=== PATIENT | male | born 1995 | race Caucasian/White ===

== ENCOUNTER 2023-11-06 18:10 | Inpatient (IN) | payer OTHER, SELFPAY ==
[2023-11-06] VITALS (13 sets, daily range): BP systolic 94–125; BP diastolic 55–79; BMI 21.7; BMI 21.3
[2023-11-06] MEDS: NSS 1000 IV ×2 (12:57→15:34)
[2023-11-06 13:04] LABS: Hematocrit 42.7 % (39.0-52.0); Hemoglobin 13.7 g/dL (13.0-18.0); Mean Corp Hgb Conc. 32.1 g/dL (33.0-37.0); Mean Corpuscular Hgb 28.4 pg (27.0-31.0); Mean Corpuscular Volume 88.4 fL (80.0-94.0); Mean Platelet Volume 9.6 fL (7.4-10.4); Platelet Count 419 10^3/uL (130-400); Red Blood Cell Count 4.83 10^6/uL (4.70-6.10); Red Cell Dist. Width 13.8 % (11.5-14.5); White Blood Cell Count 38.5 10^3/uL (4.8-10.8)
--- NOTE | 2023-11-06 13:14 | ED.GENMED ---
History of Present Illness
General
Chief Complaint: Overdose Unintentional
Time Seen by Provider: 11/06/23 12:52
History of Present Illness
History of Present Illness:
28-year-old male history of drug abuse, right hip infection presenting status post heroin overdose. Patient admits to using 1 bag of heroin today. Per EMS, patient was found unresponsive in the bathroom by his girlfriend, police arrived and
administered 4 mg of Narcan intranasally. Per EMS, respirations increased from 4 to 20. Patient reports right hip pain that started today. Patient states that he had a right hip infection years ago. Patient denies any recent fever or chills.
Patient declines rehab at this time. Patient states that he overdosed on heroin 1 time before and had decreased hearing after that episode. Patient states that hearing returned thereafter.
Phy Exam
Physical Exam
Physical Exam:
General: Alert, no acute distress, hard of hearing
Head: NCAT
Eyes: clear conjunctiva, PERRLA
Neck: supple
Cardiac: regular rhythm, tachycardic no murmur
Lungs: clear to auscultation bilaterally. No wheezes, rales, or rhonchi. Speaking full unlabored sentences. No respiratory distress.
Abdomen: soft, nondistended nontender. No rebound or guarding.
MSK: no lower extremity edema bilaterally. No deformity. Right hip tenderness to palpation. Decreased range of motion right hip secondary to pain. No overlying erythema or ecchymosis or increased warmth. 2+ DP pulses bilaterally. 5 out of 5
strength bilateral lower extremities
Skin: warm, dry
Neuro: Alert and oriented x3. no focal deficits
Course
Orders/Labs/Results
Orders:
Orders
11/06/23 12:51
Electrocardiogram (*1) Urgent
Reason for Study: Chest Pain
Cardiac Monitoring- Treatment ONCE
IV Insert/Care/Rem.- Treatment PRN
11/06/23 12:52
EKG- Treatment ONCE
11/06/23 12:54
Acetaminophen Urgent
Alcohol Urgent
Complete Blood Count/With Diff Urgent
Comprehensive Metabolic Panel Urgent
Fentanyl, Urine Urgent
Manual Differential Urgent
Salicylate Urgent
Urinalysis Reflex To Culture Urgent
Date Specimen was Collected: 11/06/23
Time Specimen was Collected: 12:52
Urine Drug Abuse Screen Urgent
Date Specimen was Collected: 11/06/23
Time Specimen was Collected: 12:52
11/06/23 12:57
0.9% Sodium Chloride 500 ml [Nss] 1,000 ml IV BOLUS
0.9% Sodium Chloride 500 ml [Nss] 500 ml IV BOLUS
11/06/23 13:13
Hip, Right 2-3 Views [CR Hip - RT w/wo Pel 2-3 Vw*] Urgent
Comment:
Reason For Exam: pain
Include a pelvis x-ray?: Yes
11/06/23 14:01
Albuterol Sulfate [Ventolin Nebules] 10 mg INH R NOW STA
Calcium Gluconate 1,000 mg IV NOW STA
Dextrose 50%-Water [Dextrose 50% Syringe] 12.5 grams IV [id number] PRN
Dextrose 50%-Water [Dextrose 50% Syringe] 25 grams IV NOW STA
Insulin Human Regular [Novolin R] 5 units IV NOW STA
11/06/23 14:02
Bedside Glucose- Treatment DIRECTED
Bedside Glucose- Treatment ONCE
11/06/23 14:15
0.9% Sodium Chloride 1000 ml [Nss] 1,000 ml IV 80 mls/hr
11/06/23 14:42
Lactic Acid Urgent
Blood Culture Urgent
VIDA Source: Blood/Venous
Specimen Description:
11/06/23 16:56
Cefepime HCl [Maxipime] 1,000 mg IV NOW STA
11/06/23 17:02
Sterile Water [Sterile Water For Injection] 10 ml .R[address]TE .[facility]
11/06/23 17:08
Vancomycin [Vancocin] 2,000 mg 0.9% Sodium Chloride 500 ml [Nss] 500 ml IV NOW
11/06/23 17:14
Potassium Urgent
Comment: draw 2 hours after regular insulin IV administration
Blood Culture Urgent
VIDA Source: Blood/Venous
Specimen Description:
11/06/23 17:39
Admit/Transfer Patient As Directed
Co-Sign Provider:
Level of Care: Inpatient admission
Assign to:: IMU- Intermediate Care
Physician / Group: sherman
Diagnosis: heroin overdose
Reason for Hospitalization: heroin overdose
Expected length of stay greater than two midnights?: Yes
ELOS- Estimated Length of Stay in days: 2
I certify the patient meets the requirements for IP care: Yes
PRN Pain Medication Management As Directed
May give lesser potent ordered pain med per pt: Yes
preference::
Protocol:: Medication orders for pain may be administered in a
manner that supports deferring to patient preference
when the pt is:
- Requesting an ordered lesser potent pain medication.
Least to most potent pain medications are defined
as: acetaminophen < NSAID < tramadol < opioids
(morphine, oxycodone, hydromorphone).
- Requesting a lesser dose of the same medication IF
ORDERED.
- Requesting a less intrusive route of administration
if both routes are prescribed by the provider (PO <
IV).
11/06/23 17:40
Code Status As Directed
Resuscitation Status: Full Code
Abnormal Lab Results
11/06/23 11/06/23 11/06/23
12:54 14:42 17:13
WBC 38.5 H 10^3/uL
(4.8-10.8)
MCHC 32.1 L g/dL
(33.0-37.0)
Plt Count 419 H 10^3/uL
(130-400)
Abs Neuts (Manual) 32.7 H 10^3/uL
(1.4-6.5)
Band Neutrophils 10 H %
(0-3)
Lymphocytes (Manual) 12 L %
(20-51)
Potassium 6.0 H mmol/L
(3.5-5.1)
Chloride 96 L mmol/L
(98-107)
Carbon Dioxide 20 L mmol/L
(22-30)
Glucose 242 H mg/dl
(70-99)
Lactic Acid 3.4 H mmol/L
(0.7-2.0)
AST 149 H U/L
(17-59)
ALT 89 H U/L
(0-50)
Albumin 5.3 H g/dl
(3.5-5.0)
Urine Ketones Trace A
(Negative)
Urine Glucose 2+ A
(Negative)
Salicylates < 1.0 L mg/dl
(2.0-20.0)
Urine Fentanyl Screen Positive H
(Negative)
Acetaminophen < 10 L ug/ml
(10-30)
U Benzodiazepines Scrn Positive H
(Negative)
Urine Cocaine Screen Positive H
(Negative)
POC Glucose 116 H mg/dl
(70-99)
11/06/23 12:54
11/06/23 17:14
Vital Signs
Initial and Last Documented VS:
Initial Vital Signs
Pulse Resp BP Pulse Ox
106 14 124/77 93
11/06/23 13:00 11/06/23 13:00 11/06/23 13:00 11/06/23 13:00
Last Documented Vital Signs
Temp Pulse Resp BP Pulse Ox
99.7 F 99 15 94/60 95
11/06/23 17:49 11/06/23 18:45 11/06/23 17:30 11/06/23 18:00 11/06/23 18:45
MDM/Problems Addressed
Differential Diagnosis Includes:
opioid overdose, right hip infection, electrolyte disturbance
MDM/Problems Addressed:
28-year-old male presenting for opioid overdose. Patient admits to using heroin today. Patient was found by girlfriend in bathroom unconscious who called police who administered Narcan. Per EMS, patient then became responsive. On arrival patient
tachycardic. Patient hard of hearing. Patient reports right hip pain starting today. Labs including UDS sent, ordered x-ray right hip rule out fracture.
Labs reviewed, significant for white count 38.5 with bandemia. Lactic acid 3.4, AST 149, ALT 89. Potassium 6. UA negative for UTI. Urine drug screen positive for fentanyl, benzodiazepines and cocaine. EKG shows sinus tachycardia 113 bpm with DC
140 QTc 463 no acute ischemic changes, no peaked T waves. Ordered calcium, albuterol, insulin/dextrose and 1 L normal saline with continuous infusion thereafter for hyperkalemia which may be from overdose/decreased respirations. Ordered vancomycin
and cefepime for broad-spectrum antibiotics due to patient meeting SIRS. Xray right hip shows no acute fracture as read by me.
Discussed again with patient, patient now can hear at a normal decibel. Patient has full range of motion of right hip now. Girlfriend at bedside states that patient was in the bathroom for about an hour when he did not come out. Discussed with
hospitalist for admission.
*Critical Care Note
Total Time (30-74mins, 75-104mins- exclusive of procedures): Not Applicable
ED Attending Note
-
Portions of this chart may have been created with voice recognition software.� Occasional wrong word or��sound alike� substitutions may have occurred due to the inherent limitations of voice recognition software.
Discharge Plan
Departure
Patient Disposition: Admit
Date of Disposition: 11/06/23
Time of Disposition: 17:08
Presentation/result/management discussed w/ accepting MD/DO: Hospitalist
Discharge Problem:
Drug overdose
Interventions
Interventions:
*Risk Screen - Suicide Last Done: 11/06/23 12:49
*General Assessment Last Done: 11/06/23 12:49
*Neglect/Abuse Screening Last Done: 11/06/23 12:49
ED- Fall Risk Assessment Last Done: 11/06/23 12:49
*ED COVID-19 Vaccine History Last Done: 11/06/23 12:49
ED- Cardiac Assessment Last Done: 11/06/23 13:05
ED- Neurological Assessment Last Done: 11/06/23 15:18
ED-Psychological Assessment Last Done: 11/06/23 13:05
ED- Pulmonary Assessment Last Done: 11/06/23 13:05
[2023-11-06 13:16] LABS: Urine Albumin Negative (Neg - Trace); Urine Bilirubin Negative (Negative); Urine Character Clear (Clear); Urine Color Yellow; Urine Glucose 2+ (Negative); Urine Ketone Trace (Negative); Urine Leukocyte Negative (Negative); Urine Nitrite Negative (Negative); Urine Occult Blood Negative (Negative); Urine Urobilinogen Negative (Neg - 1+)
[2023-11-06 13:24] LABS: Absolute Neutrophils -Man Diff 32.7 10^3/uL (1.4-6.5); Band Neutrophils 10 % (0-3); Lymphocytes 12 % (20-51); Monocytes 3 % (2-9); Segmented Neutrophils 75 % (42-75)
[2023-11-06 13:25] LABS: Normal RBC Morphology Yes; Platelets Checked Yes; Total Cells Counted 100
[2023-11-06 13:27] LABS: AST (SGOT) 149 U/L (17-59); Acetaminophen < 10 ug/ml (10-30); Albumin 5.3 g/dl (3.5-5.0); Alkaline Phosphatase 108 U/L (38-126); Blood Urea Nitrogen 16 mg/dl (9-20); Calcium 9.3 mg/dl (8.4-10.2); Carbon Dioxide 20 mmol/L (22-30); Chloride 96 mmol/L (98-107); Estimated Creatinine Clearance 112 ml/min; Glucose 242 mg/dl (70-99); Salicylate < 1.0 mg/dl (2.0-20.0); Sodium 139 mmol/L (135-145); Total Bilirubin 0.5 mg/dl (0.2-1.3); Total Protein 7.9 g/dl (6.3-8.2); eGFR > 60.00
[2023-11-06 13:33] LABS: ALT (SGPT) 89 U/L (0-50)
[2023-11-06 13:36] LABS: Alcohol None Detected
[2023-11-06 14:08] LABS: Amphetamines Negative (Negative); Barbiturates Negative (Negative); Benzodiazepines Positive (Negative); Buprenorphine Negative (Negative); Cocaine Positive (Negative); Marijuana Negative (Negative); Methadone Negative (Negative); Methamphetamines Negative (Negative); Opiates Negative (Negative); Phencyclidine Negative (Negative); Tricyclic Antidepressants Negative (Negative)
[2023-11-06 14:25] LABS: Fentanyl, Urine Positive (Negative)
[2023-11-06 15:12] LABS: Lactic Acid 3.4 mmol/L (0.7-2.0)
[2023-11-06] MEDS: DEXTROSE 50% SYRINGE 25 GRAMS IV (15:19)
[2023-11-06] MEDS: CALCIUM GLUCONATE 1000 MG IV (15:20)
[2023-11-06] MEDS: VENTOLIN NEBULES 10 MG INH (15:20)
[2023-11-06] MEDS: NOVOLIN R 5 UNITS IV (15:20)
[2023-11-06 16:45] LABS: Glucose - Point of Care 79 mg/dl (70-99)
[2023-11-06 17:15] LABS: Glucose - Point of Care 116 mg/dl (70-99)
[2023-11-06] MEDS: MAXIPIME 1000 MG IV (17:15)
[2023-11-06 17:42] LABS: Potassium 3.6 mmol/L (3.5-5.1)
--- NOTE | 2023-11-06 17:42 | HPS.HSE ---
Family Physician
-
Family Physician: * NONE
Chief Complaint
-
heroin overdose
History of Present Illness
28-year-old male past medical history of drug abuse, osteomyelitis of right hip a few years ago treated with IV antibiotics through PICC line, presenting for heroin overdose. Per EMS patient was found unresponsive in the bathroom by his girlfriend.
He may have been unconscious for around an hour she says. Police arrived and administered 4 mg of Narcan intranasally. Patient respirations increased from 4 to 20.
Patient at this time is lethargic but denies any chest pain, shortness of breath, nausea or vomiting. He is complaining of right hip pain felt similar to when he had right hip infection of years ago. He denies any fevers or chills.
Patient admits to using 1 bag of heroin today. He denies using any other drugs. Per girlfriend uses marijuana and smokes nicotine every day. He drinks alcohol occasionally.
He declines rehab at this time.
Medical History
Past Medical History
Past Medical History: Reports Other (drug abuse, osteomyelitis of right hip a few years ago)
Past Surgical History: Reports Orthopedic
Social History
Tobacco: Smoker
Alcohol: None
Drug: Narcotics
Family History
Family History: Not pertinent
Allergies / Home Medications
Allergies reflects when Allergies were last updated in [facility].
Home Medications with original date entered in [facility]
Allergy/Medication List:
Allergies
Allergy/AdvReac Type Severity Reaction Status Date / Time
Penicillins Allergy Unknown Verified 11/06/23 13:52
Home Medications
No Meds [No Current Medications] 11/06/23
Review of Systems
-
History Source: Patient
A 12 point ROS was completed and negative except as noted: Yes
Constitutional: Reports No Symptoms
EENT: Reports No Symptoms
Respiratory: Reports No Symptoms
Cardiac: Reports No Symptoms
Abdomen/GI: Reports No Symptoms
: Reports No Symptoms
Musculoskeletal: Reports No Symptoms
Skin: Reports No Symptoms
Neurological: Reports No Symptoms
Endocrine: Reports No Symptoms
Hematologic/Lymphatic: Reports No Symptoms
Psych: Reports No Symptoms
Physical Exam
Vital Signs
Vital Signs
Pulse Resp BP Pulse Ox
100 15 103/69 96
11/06/23 17:30 11/06/23 17:30 11/06/23 17:00 11/06/23 17:30
Physical Exam
General: Well Developed, Well Nourished and No Apparent Distress
HEENT: NormoCephalic, Moist mucous membranes and Atraumatic
Respiratory: Clear
Cardiac: S1/S2 and Regular Rhythm; No Murmur or Rub
GI: Soft, Non Tender, Non Distended and Normal Bowel Sounds; No Organomegaly
Rectal: Deferred by Provider
Musculoskeletal: No Clubbing, No Cyanosis and No Edema
Skin: Other (right hip tenderness ); No Rash
Neuro: Nonfocal/grossly intact
Laboratory Results
-
11/06/23 12:54
Laboratory Results
Lactic Acid 3.4 mmol/L (0.7-2.0) H 11/06/23 14:42
Total Bilirubin 0.5 mg/dl (0.2-1.3) 11/06/23 12:54
AST 149 U/L (17-59) H 11/06/23 12:54
ALT 89 U/L (0-50) H 11/06/23 12:54
Alkaline Phosphatase 108 U/L (38-126) 11/06/23 12:54
Data Reviewed
-
Lab Data: Labs Reviewed by me
Old Records: Reviewed
Impression/Plan
-
IMPRESSION:
PLAN:
# Heroin overdose
-UDS positive for fentanyl, benzodiazepines, cocaine
-Status post Narcan 4 mg with increase in respiratory rate
-IV fluids
-EKG shows sinus tachycardia
# Transaminitis secondary to heroin overdose
-Continue to monitor
# Hyperkalemia secondary to drug overdose likely from cocaine
-Insulin, dextrose, albuterol given
# Right hip pain
# History of osteomyelitis of right hip
# Leukocytosis with bands
-Tender to palpation but does not appear infected
-Bands of 10
-Check blood cultures
-Vancomycin, cefepime
-Check MRI of right hip
Smoker
-Nicotine patch
Full code
DVT prophylaxis�heparin
Regular diet
[2023-11-06] MEDS: VANCOCIN 540 MG IV (17:46)
--- NOTE | 2023-11-06 19:05 | EDRN ---
TT Dr. Allen to inform him that the patients respirations were 8-9 a minute. Patient is arousable by light touch and 02 remains stable at 95-96% on RA. Awaiting narcan orders.
[2023-11-06 19:10] LABS: Glucose - Point of Care 148 mg/dl (70-99)
[2023-11-06] MEDS: NARCAN 0.4 MG IV (19:12)
--- NOTE | 2023-11-06 19:19 | EDRN ---
Narcan given. Patient respirations have improved (14-15 per minute now). Patient is now more awake.
--- NOTE | 2023-11-06 20:20 | PTCARENOTE ---
Pt received from ED. Pt connected to monitor, oriented to room, admission questions asked. Pt drowsy, arousable to verbal stimuli. OrientedX3. Girlfriend at bedside. NSR on monitor. sat 97%. Call light in reach.
[2023-11-06] MEDS: HEPARIN 5000 UNITS SC (20:46)
[2023-11-07] VITALS (10 sets, daily range): BP systolic 99–121; BP diastolic 52–71
[2023-11-07] MEDS: MAXIPIME 2000 MG IV ×3 (01:15→17:56)
[2023-11-07] MEDS: STERILE WATER FOR INJECTION 10 ML IV ×3 (01:15→17:57)
[2023-11-07] MEDS: VANCOCIN 200 IV ×2 (04:58→21:28)
[2023-11-07] MEDS: NSS 1000 IV ×2 (04:58→17:57)
[2023-11-07 05:36] LABS: % Basophils 0.3 % (0-2); % Immature Granulocytes 0.4 % (0-0.5); % Neutrophils 58.3 % (42.2-75.2); Absolute Eosinophils 0.2 10^3/uL (0-0.7); Absolute Immature Granulocytes 0.1 10^3/uL (0-0.05); Absolute Lymphocytes 4.8 10^3/uL (1.2-3.4); Absolute Monocytes 1.4 10^3/uL (0.1-0.6); Absolute Neutrophils 9.1 10^3/uL (1.4-6.5); Hematocrit 34.5 % (39.0-52.0); Hemoglobin 11.8 g/dL (13.0-18.0); Mean Corp Hgb Conc. 34.2 g/dL (33.0-37.0); Mean Corpuscular Hgb 28.8 pg (27.0-31.0); Mean Corpuscular Volume 84.1 fL (80.0-94.0); Mean Platelet Volume 9.7 fL (7.4-10.4); Nucleated Red Blood Cells % 0 % (-); Platelet Count 350 10^3/uL (130-400); Red Cell Dist. Width 13.9 % (11.5-14.5); White Blood Cell Count 15.6 10^3/uL (4.8-10.8)
[2023-11-07 05:39] LABS: Lactic Acid 0.8 mmol/L (0.7-2.0)
[2023-11-07 05:58] LABS: ALT (SGPT) 135 U/L (0-50); AST (SGOT) 234 U/L (17-59); Albumin 3.3 g/dl (3.5-5.0); Alkaline Phosphatase 97 U/L (38-126); Blood Urea Nitrogen 9 mg/dl (9-20); Carbon Dioxide 26 mmol/L (22-30); Chloride 103 mmol/L (98-107); Estimated Creatinine Clearance > 125 ml/min; Glucose 89 mg/dl (70-99); Sodium 139 mmol/L (135-145); Total Bilirubin 0.3 mg/dl (0.2-1.3); Total Protein 5.7 g/dl (6.3-8.2); eGFR > 60.00
--- NOTE | 2023-11-07 06:39 | W.PN.UPDATE ---
Update Note
Progress Note Update
RN notified ACADEMIC AFFAIRS SPECIALIST elevated Liver enzymes. Tylenol placed on hold. Pharmacist made aware. Likely due to the overdose ?. Fluids maintained. Patient asymptomatic.
--- NOTE | 2023-11-07 09:49 | CM ---
Addendum entered by Leyda Rios 11/07/23 09:53:
Of note, pt without PCP
Rx- [facility] [address]
Original Note:
CM met with pt bedside
Pt resides with his SO/Corrina in a 3rd floor apartment, elevator access, no steps
Pt is independent at baseline and denies use of DMEs
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
Pt notes he has been clean for 3 years and recently relapsed with drug use
Declined [facility] resources at this time or inpt tx
Noted he plans to maintain sobriety on dc and has support system already in place
Made aware of how to contact CM should he change mind regarding [facility]
Discharge Disposition- home, no needs, declined [facility]- SO will transport
--- NOTE | 2023-11-07 10:00 | PHA.VAN.IN ---
Assessment
- Assessment
Renal Function: Appears similar to baseline
Concomitant Antimicrobials: cefepime
AUC Dosing Plan
- Dosing Variables
Dosing Weight (kg): 73
Dosing CrCl (ml/min): 125
Vd coefficient (L/kg): 0.7
- Empiric Dosing
Initial / Loading Dose: 2000mg - 11/05 17:46
Maintenance Regimen: Vanc 1000mg Q8H - give 1500mg x1 now then start regimen at 2200
Estimated AUC (mcg*h/mL): 572
Estimated Peak (mcg*h/mL): 33.8
Estimated Trough (mcg/ml): 15.9
Estimated Half Life (H): 6.4
Regimen predicting values at higher end of goal range but patient likely to clear more than predicted by population PK based on age and NEIL history
- Monitoring
No levels ordered at this time: consider levels in next few days
Pharmacokinetics Vancomycin I
- -
Patient Age: 28
Patient Sex: Male
Vancomycin Day #: 1
Indication: Bone And Joint
Requesting Provider: Dr. Allen
Pertinent Antimicrobial Allergies:
penicillins - unknown
Height / Weight:
Height 6 ft 1 in
Actual Weight 73.2 kg
Pertinent Past Medical History: NEIL
- Vital Signs / Lab Results
Temp Pulse Resp BP Pulse Ox
98.3 F 64 12 99/60 97
11/07/23 04:30 11/07/23 07:45 11/07/23 07:45 11/07/23 06:00 11/07/23 07:30
Lab Results - Hematology
11/06/23 11/07/23
12:54 05:14
WBC 38.5 H 15.6 H
Band Neutrophils 10 H
Lab Results - Chemistry
11/06/23 11/07/23
12:54 05:14
BUN 16 9
Creatinine 1.0 0.7
Estimated Creat Clear 112 > 125
Albumin 5.3 H 3.3 L D
11/06/23 11/07/23
14:42 05:14
Lactic Acid 3.4 H 0.8
Lab Results - Urine
11/06/23
12:54
Urine Nitrite (Reflex) Negative
Leukocyte Esterase Rfl Negative
[2023-11-07] MEDS: HEPARIN 5000 UNITS SC ×2 (10:52→21:27)
[2023-11-07] MEDS: SUBUTEX 1 MG SL ×2 (10:53→21:27)
[2023-11-07] MEDS: VANCOCIN 300 MG IV (13:00)
[2023-11-07] MEDS: VANCOCIN 300 ML IV (13:00)
[2023-11-07 13:29] LABS: Creatine Phosphokinase 4692 U/L (55-170)
--- NOTE | 2023-11-07 14:35 | W.PN.HOSP.TC ---
Addendum entered and electronically signed by Kimberly Irvin MD 11/07/23 19:22:
I saw and evaluated the patient independently. I reviewed the resident�s note and agree with findings and plan as documented by Dr. Dwyer.
GENERAL: well developed, well nourished, male in no apparent distress
HEENT: NC/AT
HEART: regular rate and rhythm, +S1, +S2
LUNGS : clear to auscultation bilaterally
ABDOM: soft, nontender, nondistended, + bowel sounds
EXT: no cyanosis, clubbing, or edema--no further hip pain
NEUROLOGIC: grossly intact
Drug overdose--pt presented with decreased respirations--responded to Narcan in the emergency department--patient states that he took 'a pill'--he denies IV drug use--patient more awake this morning--refusing to talk to psychiatry or wanting help
with his drug use--stated he has been clean for 3 years until yesterday- Patients choice of drug is snorting heroin--but toxicology screen positive for fentanyl, benzodiazepines, cocaine (patient states that his 'pill must be laced with
something')--Currently on Buprenorphine
Leukocytosis --white count 38.5 on admission --no signs of aspiration pneumonia on chest x-ray --concern was for possible septic arthritis/osteomyelitis of the right hip --patient started empirically on Vanco and cefepime --consider ID/orthopedic
consult if needed--await MRI of the right hip
Rhabdomyolysis/ myopathy--patient was on the floor for an unspecified amount of time--trend CPK--may be related to his right hip pain--await MRI right hip--continue IV fluids--white count improving--trend CPK
Transaminitis- AST 234, ALT: 135- Likely part of the presentation on rhabdomyolysis--trend LFTs--patient denies IV drug use but would consider checking hepatitis studies--if LFTs increase tomorrow, will check ultrasound and perhaps consult GI--agree
with holding Tylenol/acetaminophen
DVT proph
code status -- FULL CODE
Original Note:
Today's Communication/Plan
-
continue IV fluids
trend kidney function, and electrolytes
ask patient if they want to talk to psychiatrist
Assessment / Plan
Assessment / Plan
Chest Xray performed (11/06) to check for possible pneumonia
Rhabdomyolysis/ myopathy:
- Pts creatinine kinase level is 4000
- sodium chloride 1000 ml / hr IV started to help prevent loss of kidney function
- continue to monitor and recheck serum potassium, Serum creatinine, and BUN
Right hip pain
- no fever, tender to palpation
- MRI of right leg joint ordered (11/06)
- Vancomycin/ cefepime were started empirically
- blood cultures negative (11/05)
- wbc 15.6
Transaminitis:
- AST 234, ALT: 135
- Likely part of the presentation on rhabdomyolysis, continue to observe the levels daily.
Drug overdose:
- Patients choice of drug is snorting heroin
- Patient also smokes marijuana and ciggarettes ( 1 pack) everyday
- Currently on Buprenorphine
- Put in a possible consult to psychiatrist if patient agrees
Anticipated Discharge: 24 - 48 hours
Subjective/Interval History
-
Date of Service: November 07, 2023
No overnight events. No acute overnight medical complaints.
Objective Data
-
Labs:
Laboratory Results
11/07/23
05:14
WBC 15.6 H
Hgb 11.8 L
Hct 34.5 L
Plt Count 350
Sodium 139
Potassium 4.0
Chloride 103
Carbon Dioxide 26
BUN 9
Creatinine 0.7
Glucose 89
Calcium 9.0
Total Bilirubin 0.3
AST 234 H
ALT 135 H
Alkaline Phosphatase 97
Vital Signs:
Vital Signs
Temp Pulse Resp BP Pulse Ox
98.3 F 92 36 115/62 95
11/07/23 11:45 11/07/23 12:17 11/07/23 12:17 11/07/23 12:00 11/07/23 12:17
I&O
11/06/23 11/07/23 11/08/23
06:59 06:59 06:59
Intake Total 480 / 480 480 / 480
Output Total 800 / 800
Balance 480 / 480 -320 / -320
Review of Systems
-
History Source: Patient
Musculoskeletal: Reports Other (right hip pain )
Physical Exam
-
General: Well Developed and Comfortable
HEENT: Normocephalic
Respiratory: Clear to Auscultation
Cardiac: Regular Rhythm and S1/S2
GI: Soft and Nondistended
Musculoskeletal: No Clubbing, No Cyanosis and No Edema
Skin: Warm and Dry
Neuro: Awake and Alert
Psych: Calm
Data Reviewed
-
Labs: Labs Reviewed by me and Discussed with Physician
--- NOTE | 2023-11-07 20:40 | PTCARENOTE ---
Addendum entered by Kimo Price RN 11/08/23 05:12:
Suicide risk screening questions repeated by this RN, Pt answered yes to first question and no all other listed questions. Pt does express feelings of being down, denies suicidal ideation.
Original Note:
Pts Girlfriend cam to this RN to express concern for Pt, stating Pt had made concerning comments alluding to suicidal ideation at home. Suicide risk screening admission questions completed by ED and floor RN's, both documented times it was completed
the Pt answered no to all questions. Pt sleeping at this time. PEN AND PENCIL REPAIRER notified of information.
--- NOTE | 2023-11-07 22:39 | W.PN.UPDATE ---
Update Note
Progress Note Update
RN notified [facility] [employer], patient's girlfriend concern about patient's suicidal ideation. Went to see the patient, patient is sleeping, did not want to communicate at this time. Girl friend is at the bedside. She stated he had made comments at home and here '
I don't want to be here in general' per girlfriend patient has no psych history and was never evaluated by Psychiatry. Girlfriend seeking help from psych. Will place psych consult. Girlfriend staying overnight with the patient.
[2023-11-08] VITALS (8 sets, daily range): BP systolic 102–117; BP diastolic 45–71
[2023-11-08] MEDS: MAXIPIME 2000 MG IV ×3 (01:53→15:50)
[2023-11-08] MEDS: STERILE WATER FOR INJECTION 10 ML IV ×3 (01:54→15:51)
[2023-11-08 04:44] LABS: Hematocrit 36.3 % (39.0-52.0); Hemoglobin 12.6 g/dL (13.0-18.0); Mean Corp Hgb Conc. 34.7 g/dL (33.0-37.0); Mean Corpuscular Hgb 30.1 pg (27.0-31.0); Mean Corpuscular Volume 86.8 fL (80.0-94.0); Mean Platelet Volume 10.3 fL (7.4-10.4); Platelet Count 340 10^3/uL (130-400); Red Blood Cell Count 4.18 10^6/uL (4.70-6.10); Red Cell Dist. Width 13.9 % (11.5-14.5); White Blood Cell Count 14.2 10^3/uL (4.8-10.8)
[2023-11-08 05:02] LABS: ALT (SGPT) 149 U/L (0-50); AST (SGOT) 189 U/L (17-59); Albumin 3.5 g/dl (3.5-5.0); Alkaline Phosphatase 96 U/L (38-126); Blood Urea Nitrogen 5 mg/dl (9-20); Calcium 9.5 mg/dl (8.4-10.2); Carbon Dioxide 27 mmol/L (22-30); Chloride 103 mmol/L (98-107); Estimated Creatinine Clearance > 125 ml/min; Glucose 98 mg/dl (70-99); Potassium 4.5 mmol/L (3.5-5.1); Sodium 140 mmol/L (135-145); Total Bilirubin 0.4 mg/dl (0.2-1.3); Total Protein 6.1 g/dl (6.3-8.2); eGFR > 60.00
[2023-11-08] MEDS: VANCOCIN 200 IV ×2 (06:05→14:13)
[2023-11-08] MEDS: SUBUTEX 1 MG SL ×2 (08:14→21:52)
[2023-11-08] MEDS: HEPARIN 5000 UNITS SC ×2 (08:18→21:53)
[2023-11-08] MEDS: NSS 1000 IV (08:18)
[2023-11-08 09:08] LABS: Creatine Phosphokinase 2765 U/L (55-170)
--- NOTE | 2023-11-08 09:29 | PHA.VAN.FU ---
Vancomycin Assessment / Plan
- Assessment
Renal Function: Stable
WBC's are: Trending Down
In the past 24 hrs, patient has been: Afebrile
Concomitant Antimicrobials: cefepime
- Dosing Plan
Continue: Vanc 1000mg Q8H
- Follow Up
Pharmacy will continue to follow.
Vancomycin Follow UP
- -
Patient Age: 28
Patient Sex: Male
Vancomycin Day #: 2
Indication: Bone And Joint
Requesting Provider: Dr. Allen
Pertinent Antimicrobial Allergies:
penicillins - unknown
Height / Weight:
Height 6 ft 1 in
Actual Weight 73.2 kg
Pertinent Past Medical History: NEIL
- Vital Signs / Lab Results
Temp Pulse Resp BP Pulse Ox
97.5 F 50 13 113/62 97
11/08/23 07:40 11/08/23 07:15 11/07/23 15:34 11/08/23 06:00 11/08/23 07:15
Lab Results - Hematology
11/06/23 11/07/23 11/08/23
12:54 05:14 04:14
WBC 38.5 H 15.6 H 14.2 H
Band Neutrophils 10 H
Lab Results - Chemistry
11/06/23 11/07/23 11/08/23
12:54 05:14 04:14
BUN 16 9 5 L
Creatinine 1.0 0.7 0.6 L
Estimated Creat Clear 112 > 125 > 125
Albumin 5.3 H 3.3 L D 3.5
11/06/23 11/07/23
14:42 05:14
Lactic Acid 3.4 H 0.8
Microbiology Results
11/07/23 02:07 MRSA Screen - Final
Nose No Methicillin Resistant Staphylococcus aureus isolated.
11/06/23 17:14 Blood Culture - Preliminary
Blood/Venous No Growth in 24 hours- Final report to follow
11/06/23 14:42 Blood Culture - Preliminary
Blood/Venous No Growth in 24 hours- Final report to follow
--- NOTE | 2023-11-08 10:56 | PN.CDI ---
CDI
- -
CDI:
Physician Documentation Request
Admit Date: 11/06/23 18:10
Dear Doctor Yuliya,
Patient presented to ED after heroin overdose. Progress notes include a diagnosis of rhabdomyolysis 'was on floor for unspecified amount of time...'
Please clarify the most likely type of rhabdomyolysis
Non traumatic
Traumatic
Other
Use of terms such as suspected, likely, concern for, or probable (associated with a specific diagnosis that is being evaluated, monitored, or treated as if it exists) are acceptable and can be coded in the inpatient setting, when documented at the
time of discharge.
Thank you,
Celine Martinez RN, BSN
CDI Specialist
tiger text
Please use your independent medical judgment in providing your response.
--- NOTE | 2023-11-08 11:44 | CS.PSYCHR ---
Consult Summary - Psychiatry
-
Pt is a 28 yo male who was brought to ED by EMS for heroin overdose. Pt was reportedly found unresponsive in the bathroom by his girlfriend, may have been unconscious for up to an hour. Police administered 4 mg of Narcan intranasally, which
restored respirations to normal range. Pt seen resting in bed in no distress, calm, alert, answering questions. He denies intentional OD, denies any suicidal ideation. Pt reports some mild depression at times, denies the need for mental health
treatment. Pt went to Suboxone treatment in [place], got one prescription, before moving to [place] with his girlfriend. Pt states he would like to return home and seek outpatient Suboxone treatment. He denies current withdrawal symptoms.
Psych Hx: denied
Hx of drug rehab 2 to 3 years ago
SH: works in [employer] off and on, living with girlfriend
MSE: alert, oriented, calm, cooperative. No active complaints. Speech coherent, thought goal-directed, no signs of psychosis. Affect appropriate, mood stable. Denies any SI. Insight limited to fair
Imp: Opioid Use d/o, severe. Accidental Fentanyl OD. Pt appears psychiatrically stable for discharge when medically cleared
R/o polysubstance use- UDS positive for benzo and cocaine
Rec: Addiction treatment/rehab- pt states he prefers outpatient Suboxone treatment
No indication for psychiatric treatment. Psychiatry will sign off
--- NOTE | 2023-11-08 12:44 | PTCARENOTE ---
pt being transferred to tele room 334. report given to Whit.
--- NOTE | 2023-11-08 14:10 | PTCARENOTE ---
1330 Pt received from IMU via wheelchair AAOX3. Ambulated to room 334-1. Pt oriented to staff, call light and environment.
--- NOTE | 2023-11-08 18:31 | W.PN.HOSP.TC ---
Addendum entered and electronically signed by Kimberly Irvin MD 11/08/23 20:45:
I saw and evaluated the patient independently. I reviewed the resident�s note and agree with findings and plan as documented by Dr. Dwyer.
GENERAL: well developed, well nourished, male in no apparent distress
HEENT: NC/AT
HEART: regular rate and rhythm, +S1, +S2
LUNGS : clear to auscultation bilaterally
ABDOM: soft, nontender, nondistended, + bowel sounds
EXT: no cyanosis, clubbing, or edema--no further hip pain
NEUROLOGIC: grossly intact
Drug overdose--pt presented with decreased respirations--responded to Narcan in the emergency department--patient states that he took 'a pill'--he denies IV drug use--patient more awake this morning--stated he has been clean for 3 years until
yesterday--Patients choice of drug is snorting heroin--but toxicology screen positive for fentanyl, benzodiazepines, cocaine (patient states that his 'pill must be laced with something')--Currently on Buprenorphine
Suicidal ideations -- seen by psych--cleared for d/c
Leukocytosis --white count 38.5 on admission --no signs of aspiration pneumonia on chest x-ray --concern was for possible septic arthritis/osteomyelitis of the right hip --cultures negative--abx stopped--MRI of the right hip without septic joint or
osteomyelitis--positive myositis
Nontraumatic Rhabdomyolysis/ myopathy--patient was on the floor for an unspecified amount of time-- CPK decreasing--likely cause of right hip pain along with myositis--continue IV fluids--white count improving
Transaminitis- AST 234, ALT: 135- Likely part of the presentation on rhabdomyolysis--trend LFTs--patient denies IV drug use but would consider checking hepatitis studies--trending down
DVT proph
code status -- FULL CODE
Original Note:
Today's Communication/Plan
-
monitor the patients CPK
Monitor BMP, LFTS
Assessment / Plan
Assessment / Plan
Rhabdomyolysis/ myopathy:
- Pts creatinine kinase level is improving from 2765 (11/07) from 4692 (11/07)
- continue sodium chloride 1000 ml / hr IV started to help prevent loss of kidney function
- continue to monitor and recheck serum potassium, Serum creatinine, and BUN
Right hip pain
- no fever, tender to palpation
- MRI of right leg joint ordered (11/07)- no evidence of osteomyelitis or avascular necrosis of the femur. There is evidence of edema which is indicative of myositis.
- Vancomycin/ cefepime discontinued (11/07)
- blood cultures negative (11/05)
- wbc 14.2 (11/07) trending down from 15.6 (11/06), likely reactive, observe
Suicidal ideation:
- Pt's girlfriend states that he had made comments about committing suicide at home
- Psych evaluation (11/07)- pt denied suicidal ideation, some mild depression, would like to continue outpatient Suboxone treatment, physiatrically stable for discharge if medically cleared.
Transaminitis:
- AST 189, ALT: 149 (11/07) trending down
- Likely part of the presentation on rhabdomyolysis, continue to observe the levels daily.
Drug overdose:
- Patients choice of drug is snorting heroin
- Patient also smokes marijuana and cigarettes ( 1 pack) everyday
- Continue Suboxone treatment outpatient
- Put in a possible consult to psychiatrist if patient agrees
Possible pneumonia:
- Pts elevated wbc count could be possible pneumonia
- Chest xray is negative for pneumonia (11/06)
Anticipated Discharge: 24 - 48 hours
Subjective/Interval History
-
Date of Service: November 08, 2023
no overnight events. No acute medical concerns.
Objective Data
-
Vital Signs:
Vital Signs
Temp Pulse Resp BP Pulse Ox
98.1 F 77 16 102/45 99
11/08/23 15:30 11/08/23 15:30 11/08/23 15:30 11/08/23 15:30 11/08/23 15:30
I&O
11/07/23 11/08/23 11/09/23
06:59 06:59 06:59
Intake Total 480 / 480 2540 / 2540 300 / 300
Output Total 800 / 800
Balance 480 / 480 1740 / 1740 300 / 300
Review of Systems
-
History Source: Patient
All other systems: Reviewed and negative
Physical Exam
-
General: Well Developed
HEENT: Normocephalic and Atraumatic
Respiratory: Clear to Auscultation
Cardiac: Regular Rhythm and S1/S2
GI: Soft, Nontender and Nondistended
Musculoskeletal: No Clubbing and No Edema
Skin: Warm and Dry
Neuro: Awake, Alert and Oriented
Psych: Calm
--- NOTE | 2023-11-08 19:13 | W.PN.UPDATE ---
Update Note
Progress Note Update
discontinued the vancomycin and cefepime because the mri was negative for any infectious etiology
[2023-11-08] MEDS: NSS IV (21:40)
[2023-11-09 03:05] VITALS: BP 110/58
[2023-11-09] MEDS: STERILE WATER FOR INJECTION IV (06:06)
[2023-11-09 06:32] LABS: Hematocrit 40.3 % (39.0-52.0); Hemoglobin 13.6 g/dL (13.0-18.0); Mean Corp Hgb Conc. 33.7 g/dL (33.0-37.0); Mean Corpuscular Hgb 29.3 pg (27.0-31.0); Mean Corpuscular Volume 86.9 fL (80.0-94.0); Mean Platelet Volume 10.4 fL (7.4-10.4); Platelet Count 382 10^3/uL (130-400); Red Blood Cell Count 4.64 10^6/uL (4.70-6.10); Red Cell Dist. Width 13.7 % (11.5-14.5); White Blood Cell Count 13.1 10^3/uL (4.8-10.8)
[2023-11-09 07:17] LABS: ALT (SGPT) 123 U/L (0-50); AST (SGOT) 118 U/L (17-59); Albumin 3.9 g/dl (3.5-5.0); Alkaline Phosphatase 93 U/L (38-126); Blood Urea Nitrogen 5 mg/dl (9-20); Calcium 9.9 mg/dl (8.4-10.2); Carbon Dioxide 28 mmol/L (22-30); Chloride 103 mmol/L (98-107); Creatine Phosphokinase 1376 U/L (55-170); Estimated Creatinine Clearance > 125 ml/min; Glucose 97 mg/dl (70-99); Potassium 4.5 mmol/L (3.5-5.1); Sodium 140 mmol/L (135-145); Total Bilirubin 0.4 mg/dl (0.2-1.3); Total Protein 6.5 g/dl (6.3-8.2); eGFR > 60.00
[2023-11-09 07:50] VITALS: BP 109/62
[2023-11-09] MEDS: HEPARIN 5000 UNITS SC (08:19)
[2023-11-09] MEDS: SUBUTEX 1 MG SL (08:19)
[2023-11-09 11:27] VITALS: BP 116/54
--- NOTE | 2023-11-09 11:32 | CM ---
CM met with Gelacio at bedside. Plan is for return home with his SO. Psych eval completed due to reported suicidal ideation per SO. Gelacio was cleared by psych for discharge. Gelacio is not amenable to [facility] or other resources related to substance
abuse. Reports prior inpatient treatment and was clean for 2-3 years.
Plan: Discharge to home with SO; no needs per patient report.
--- NOTE | 2023-11-09 13:51 | W.PN.HOSP.TC ---
Addendum entered and electronically signed by Kimberly Irvin MD 11/09/23 18:49:
I saw and evaluated the patient independently. I reviewed the resident�s note and agree with findings and plan as documented by Dr. Dwyer.
GENERAL: well developed, well nourished, male in no apparent distress
HEENT: NC/AT
HEART: regular rate and rhythm, +S1, +S2
LUNGS : clear to auscultation bilaterally
ABDOM: soft, nontender, nondistended, + bowel sounds
EXT: no cyanosis, clubbing, or edema--no further hip pain
NEUROLOGIC: grossly intact
Drug overdose--pt presented with decreased respirations--responded to Narcan in the emergency department--patient states that he took 'a pill'--he denies IV drug use---stated he has been clean for 3 years previously--Patients choice of drug is
snorting heroin--but toxicology screen positive for fentanyl, benzodiazepines, cocaine (patient states that his 'pill must be laced with something')--Currently on Buprenorphine
Suicidal ideations -- seen by psych--cleared for d/c
Leukocytosis --white count 38.5 on admission --no signs of aspiration pneumonia on chest x-ray --concern was for possible septic arthritis/osteomyelitis of the right hip --cultures negative--abx stopped--MRI of the right hip without septic joint or
osteomyelitis--positive myositis
Nontraumatic Rhabdomyolysis/ myopathy--patient was on the floor for an unspecified amount of time-- CPK decreasing down to 1300--likely cause of right hip pain along with myositis---white count improving
Transaminitis- AST 234, ALT: 135- Likely part of the presentation on rhabdomyolysis--trending down
DVT proph
code status -- FULL CODE
ok for d/c
Original Note:
Today's Communication/Plan
-
d/c patient today
follow up CPK level, cbc, cmp on patient
Assessment / Plan
Assessment / Plan
Rhabdomyolysis/ myopathy:
- Pts creatinine kinase level is improving from 1376 (11/08) from 2765 (11/07)
- continue sodium chloride 1000 ml / hr IV started to help prevent loss of kidney function
- continue to monitor and recheck serum potassium, Serum creatinine, and BUN
Right hip pain
- no fever, tender to palpation
- MRI of right leg joint ordered (11/07)- no evidence of osteomyelitis or avascular necrosis of the femur. There is evidence of edema which is indicative of myositis.
- Vancomycin/ cefepime discontinued (11/07)
- blood cultures negative (11/05)
- wbc 13.1 (11/08) trending down from 14.2 (11/07), likely reactive, observe
Suicidal ideation:
- Pt's girlfriend states that he had made comments about committing suicide at home
- Psych evaluation (11/07)- pt denied suicidal ideation, some mild depression, would like to continue outpatient Suboxone treatment, physiatrically stable for discharge if medically cleared.
Transaminitis:
- AST 118, ALT: 123 (11/08) trending down
- Likely part of the presentation on rhabdomyolysis, continue to observe the levels daily.
Drug overdose:
- Patients choice of drug is snorting heroin
- Patient also smokes marijuana and cigarettes ( 1 pack) everyday
- Continue Suboxone treatment outpatient
- Put in a possible consult to psychiatrist if patient agrees
Possible pneumonia:
- Pts elevated wbc count could be possible pneumonia
- Chest xray is negative for pneumonia (11/06)
Anticipated Discharge: Today
Subjective/Interval History
-
Date of Service: November 09, 2023
no overnight events. No acute medical complaints.
Objective Data
-
Labs:
Laboratory Results
11/09/23
05:37
WBC 13.1 H
Hgb 13.6
Hct 40.3
Plt Count 382
Sodium 140
Potassium 4.5
Chloride 103
Carbon Dioxide 28
BUN 5 L
Creatinine 0.7
Glucose 97
Calcium 9.9
Total Bilirubin 0.4
AST 118 H
ALT 123 H
Alkaline Phosphatase 93
Vital Signs:
Vital Signs
Temp Pulse Resp BP Pulse Ox
98.4 F 44 16 116/54 99
11/09/23 11:27 11/09/23 11:27 11/09/23 11:27 11/09/23 11:27 11/09/23 11:27
I&O
11/08/23 11/09/23 11/10/23
06:59 06:59 06:59
Intake Total 2540 / 2540 1780 / 1780
Output Total 800 / 800
Balance 1740 / 1740 1780 / 1780
Review of Systems
-
History Source: Patient
All other systems: Reviewed and negative
Physical Exam
-
General: Well Developed and Well Nourished
HEENT: Normocephalic and Atraumatic
Respiratory: Clear to Auscultation
Cardiac: Regular Rhythm and S1/S2
GI: Soft, Nontender and Nondistended
Musculoskeletal: No Clubbing, No Cyanosis and No Edema
Skin: Warm and Dry
Neuro: Awake, Alert, Oriented and AO x 3
Psych: Calm
Data Reviewed
-
Labs: Labs Reviewed by me and Discussed with Physician
--- NOTE | 2023-11-09 19:23 | W.DCSUMMARY ---
Addendum entered and electronically signed by Kimberly Irvin MD 11/09/23 19:53:
Read, reviewed, and agree. See same day progress note for additional details. Time spent coordinating care, DC planning, review of DC plan of care with resident, transition of care, review of records in EMR, med rec, consults, notes, d/w
consultants, nursing, family, and CM.
Original Note:
Discharge Summary
Discharge Data
Date of Admission: 11/06/23
Date of Discharge: 11/09/23
-
Pending Results: No
Additional Pending Results:
Hospital Course
on 11/05- patient presented to the Emergency department with heroin overdose after his girlfriend found him unresponsive. Police arrived on the scene and administered narcan 4 mg intranasally. He also smokes marijuana, cigarettes, and urine screening
test positive for benzodiazepines and cocaine. Currently on Buprenorphine. He also reports a right hip pain. on 11/06 , his creatinine phosphokinase level is 4000 on labs, we suspect Rhabdomyolysis, Iv fluids sodium chloride is ordered to help
prevent loss of kidney function. Differential diagnosis is also a possible septic arthritis/ osteomyelitis so empiric vancomycin/ cefepime started and a MRI ordered. A chest x ray is also ordered because of his elevated leucocytosis to rule out
pneumonia. There is also elevated levels of transaminases so the plan was to observe carefully. blood cultures negative. on 11/07- his right lower extremity MRI came back negative for any infectious pathology, so his antibiotics were also stopped.
His CPK count is also decreasing to 2756, so IV fluids are improving his condition. His transaminase levels/ leucocyte count are also trending down. We suspect the diagnosis to be non traumatic rhabdomyolysis due to his drug usage and also explains
the increased transaminases/ right hip pain. on 11/08 his CPK levels are still trending down, now they are 1376, so continued on the fluids. His leucocytosis/ transaminase count is also trending down. Pt is discharged with his buprenorphine
medication and follow up CBC, CMP, and CPK levels outpatient in one week.
During his stay, he had told his girlfriend of suicidal ideation. After further physiatric workup, he denied these ideations and was medically cleared for discharge after further evaluation.
Discharge Plan
-
Patient Disposition: Home (Routine Discharge)
Discharge Diagnosis/Procedures: Nontraumatic Rhabdomyolysis, Drug overdose, transaminitis, suicidal ideations, myositis
Condition: Good
Diet: As tolerated
Activity: As tolerated
Driving Restrictions: As prior to admission
Bathing Restrictions: None
Others Tests: Follow up CBC, CMP, and CPK level with PCP outpatient
Referrals:
Caroline Wolfe MD, Resident [Family Practice Resident Year2] - in less than 1 week
Prescriptions:
Continued
Subutex 8 mg tablet
1 PO BID
Discharge Orders:
Discharge Patient (As Directed); Ordered 11/09/23
Ordered By: Santosh Dwyer
Discharge Date and Time
Discharge Date/Time: 11/09/23 15:34
Print Language: SAMI
== END 2023-11-09 15:34 | disposition home or self-care (01) | DRG 918 ==
LOC: 3 WEST ACU 18:10
PROVIDERS: ADMITTING PHYSICIAN Hospitalist; ATTENDING PHYSICIAN Internal Medicine; EMERGENCY PHYSICIAN Emergency Medicine; OTHER PHYSICIAN Psychiatry & Neurology Psychiatry
DX: T40.1X1A Poisoning by heroin, accidental (unintentional), initial encounter (principal); M62.82 Rhabdomyolysis; F11.20 Opioid dependence, uncomplicated; R45.851 Suicidal ideations; G72.9 Myopathy, unspecified; T40.411A Poisoning by fentanyl or fentanyl analogs, accidental (unintentional), initial encounter; D72.829 Elevated white blood cell count, unspecified; E87.5 Hyperkalemia; M25.551 Pain in right hip; F17.210 Nicotine dependence, cigarettes, uncomplicated; F12.90 Cannabis use, unspecified, uncomplicated; R00.0 Tachycardia, unspecified; R74.01 Elevation of levels of liver transaminase levels; Z87.39 Personal history of other diseases of the musculoskeletal system and connective tissue
CPT/HCPCS: 71045; 73502; 73723; 80053; 80143; 80179; 80306; 80307; 81003; 82077; 82550; 82962; 83605; 84132; 85025; 85027; 87040; 87070; 93005; 94640; 96374; 96375; 99285; 99406; A9575

== ENCOUNTER 2024-04-03 17:01 | Emergency (ER) | payer OTHER, SELFPAY ==
[2024-04-03 17:12] VITALS: BP 121/76
--- NOTE | 2024-04-03 18:30 | ED.GENMED ---
History of Present Illness
General
Chief Complaint: Jaw Pain
Source: patient
Exam Limitations: none
Time Seen by Provider: 04/03/24 18:06
History of Present Illness
History of Present Illness:
28-year-old male presents with swelling to left lower jaw starting yesterday getting worse today. He notes several bad teeth in the area. He thinks he has a dental infection. No chest pain. No fever. No other complaints
Phy Exam
Physical Exam
Physical Exam:
General: Well-appearing male no acute respiratory distress
HEENT: Normocephalic swelling noted over the angle of the mandible. Examination dentition provide dorsalis the first and second and third molars to be eroded to the gums. There is gingival swelling over the second molar. There is mild amount of
drainage. The posterior pharynx is symmetric there is no stridor or trismus no adenopathy
Course
Orders/Labs/Results
Orders:
Orders
04/03/24 18:29
Clindamycin HCl [Cleocin] 300 mg PO NOW STA
Vital Signs
Initial and Last Documented VS:
Initial Vital Signs
Temp Pulse Resp BP Pulse Ox
98.5 F 125 16 121/76 98
04/03/24 17:12 04/03/24 17:12 04/03/24 17:12 04/03/24 17:12 04/03/24 17:12
Last Documented Vital Signs
Temp Pulse Resp BP Pulse Ox
98.5 F 125 16 121/76 98
04/03/24 17:12 04/03/24 17:12 04/03/24 17:12 04/03/24 17:12 04/03/24 17:12
MDM/Problems Addressed
Differential Diagnosis Includes:
Dental abscess versus gingival cellulitis. There is already some drainage occurring. No indication for any drainage at this time. Patient has swelling with penicillin will start clindamycin. Advised warm salt water rinses and dental follow-up
*Critical Care Note
Total Time (30-74mins, 75-104mins- exclusive of procedures): Not Applicable
ED Attending Note
-
Portions of this chart may have been created with voice recognition software.� Occasional wrong word or��sound alike� substitutions may have occurred due to the inherent limitations of voice recognition software.
Discharge Plan
Departure
Patient Disposition: Home (Routine Discharge)
Date of Disposition: 04/03/24
Time of Disposition: 18:31
Patient with high blood pressure during this ER visit?: No
Discharge Problem:
Dental abscess
Instructions: Tooth Abscess (DC)
Prescriptions:
New
clindamycin HCl 300 mg capsule
300 mg PO TID Qty: 20 0RF
No Action
Subutex 8 mg tablet
1 PO BID
Referrals:
Ivan Rea DO [Primary Care Provider] -
Activity Restrictions/Additional Instructions:
Take antibiotics as directed. Use warm salt water rinses. You may use ibuprofen or Tylenol for pain. Return if worse otherwise follow-up with your dentist.
Interventions
Interventions:
*Risk Screen - Suicide Last Done: 04/03/24 17:12
*General Assessment Last Done: 04/03/24 17:12
*Neglect/Abuse Screening Last Done: 04/03/24 17:12
*ED COVID-19 Vaccine History Last Done: 04/03/24 17:18
ED- Cardiac Assessment Last Done: 04/03/24 17:18
ED-EENT Assessment Last Done: 04/03/24 17:18
Discharge Date and Time
Print Language: SYRIAC
[2024-04-03] MEDS: CLEOCIN 300 MG PO (18:36)
[2024-04-03 18:42] VITALS: BP 126/80
== END 2024-04-03 18:43 | disposition home or self-care (01) ==
LOC: EMR 17:01
PROVIDERS: EMERGENCY PHYSICIAN Student in an Organized Health Care Education/Training Program; PRIMARYCARE PHYSICIAN Family Medicine
DX: K04.7 Periapical abscess without sinus (principal)
CPT/HCPCS: 99283